=== PATIENT | female | born 1950 | race Caucasian/White ===

== ENCOUNTER 2020-11-06 12:30 | Inpatient (IN) ==
--- NOTE | 2020-10-30 10:18 | Anesthesiology Consultation ---
Date of Service October 30, 2020 Assessment & Plan (1) Encounter for pre-operative examination: - COVID screening: Per assessment on 10/30: Travel screen negative, no known COVID-19 positive contacts or current COVID-19 related symptoms. Patient vaccinated. Surgeon arranging preop COVID testing. Awaiting results. - PCP office visit (09/25/20): "Pt had preop labs, chronic hyponatremia (124 on those labs).. Has upcoming appt with neurology next month.. clinically stable for surgery based on today's exam (Assuming cardiology and neurology clear the patient as well).. Has chronic hyponatremia - likely a result of the patient's chronic use of carbamazepine for epilepsy. Attached are the chronic sodium labs. Correction would likely lead to increased issues- neurology is working to wean off carbamazepine. Monitoring in daniel-operative period is recommended." Pt subsequently received cardiology clearance 09/30 and neurology clearance 10/22 (noted below). - Cardiology note (09/30/20): "low risk" for surgery - Neurology office visit (10/09/20): "Hyponatremia from Tegretol and losartan..Will taper and discontinue Tegretol, electrolytes after discontinuing Tegretol.. Follow-up after electrolytes, if normal will be able to get preop approval. Previous EEG in June is normal, no seizures." - Neurology office visit (10/22/20): "Comes for follow up today regarding testing results of Electrolytes regarding low sodium level.. She has had no Seizure activity since her previous visit. The patient was scheduled for back surgery and came for neurological clearance. Her sodium level remained low at the time. She had a low sodium level for many years.. She continued on all the same medication without complication or side effect. She had no new complaints and comes today to report on 10/16/2020 her sodium level remained low. Her level was 131.. The patient was advised to discontinue Tegretol. She reports she had no Seizure activity since her previous visit. The patient will contact Dr. Ji to schedule her surgery. She had no other concerns or complaints at this time.. Hyponatremia, Carbemazepine induced , corrected with discontinuing Carbemazepine and increasing salt in her diet.. she is now cleared for her planned surgery." Chart Review Chart Review: Acceptable Risk for Surgery and Patient NOT seen in Pre Admission Testing History Surgery Operation Date: 11/06/20 11:05 Proposed Procedures p L4-S1 Decompression/Fusion, Spinal Cord Monitoring - Andrei Ji DO Height/Weight Height: 5 ft 1 in Weight: 60.781 kg Allergies Allergy/AdvReac Type Severity Reaction Status Date / Time propoxyphene [From Darvon] AdvReac Mild Upset Verified 10/30/20 10:15 stomach Medications Home Medications Medication Instructions Recorded Confirmed Last Taken aspirin 81 mg tablet 81 mg PO QAM 09/17/20 10/30/20 Unknown atorvastatin 40 mg tablet 40 mg PO PM 09/17/20 10/30/20 Unknown cholecalciferol (vitamin D3) 25 25 mcg PO QAM 09/17/20 10/30/20 Unknown mcg (1,000 unit) tablet (Vitamin D3) losartan 50 mg tablet 50 mg PO QAM 09/17/20 10/30/20 Unknown metoprolol succinate 100 mg 100 mg PO QPM 09/17/20 10/30/20 Unknown tablet,extended release 24 hr multivitamin 1 tab PO QAM 09/17/20 10/30/20 Unknown omeprazole 20 mg tablet,delayed 20 mg PO QAM 09/17/20 10/30/20 Unknown release Past Medical History Medical History Arthritis CAD (coronary artery disease) stents x3 (2018), Follows with Dr. Corrales GERD (gastroesophageal reflux disease) controlled History of anemia blood transfusion in infancy (unknown etiology) Hyperlipidemia Hypertension Seizure Grand mal > most recent seizure 25+ years ago (recently weaned off Tegretol d/t hyponatremia) Spinal stenosis Past Family History Family History Mother Family hx of colon cancer Other No family history of adverse response to anesthesia Past Surgical History Surgical History History of bilateral tubal ligation History of bunionectomy Right History of colonoscopy History of heart artery stent x3 (2018)- [facility] [place] teeth removed Social History Smoking Status: Never smoker Hx Alcohol Use: No Alcohol type: wine alcohol intake frequency: holidays/special occasions only Hx Substance Use: No substance use type: does not use Lab Results Anesthesia Preop Results Results Anesthesia Widget: WBC 6.05 K/uL (4.8-10.8) 09/23/20 Hgb 12.6 g/dL (12.0-16.0) 09/23/20 Hct 36.6 % (37-47) L 09/23/20 Plt 345 K/uL (130-400) 09/23/20 Na 131 mmol/L (136-145) L 10/03/20 K 4.2 mmol/L (3.5-5.1) 09/23/20 Cl 90 mmol/L (98-107) L 09/23/20 CO2 30 mmol/L (21-32) 09/23/20 BUN 12 mg/dl (7-18) 09/23/20 Creat 0.61 mg/dl (0.6-1.2) 09/23/20 Glucose Level 128 mg/dl (70-99) H 09/23/20 PT 10.5 Seconds (9.0-12.0) 09/23/20 PTT 27.6 Seconds (21.0-31.0) 09/23/20 INR 1.0 (0.9-1.1) 09/23/20 Urine Color Yellow 09/23/20 Urine Appearance Clear (Clear) 09/23/20 Urine pH 7.5 (4.5-7.5) 09/23/20 Urine Specific [place] 1.013 (1.000-1.030) 09/23/20 Urine Protein Negative (Negative) 09/23/20 Urine Glucose (UA) Negative (Negative) 09/23/20 Urine Ketones Negative (Negative) 09/23/20 Urine Blood Negative (Negative) 09/23/20 Urine Nitrite Negative (Negative) 09/23/20 Urine Bilirubin Negative (Negative) 09/23/20 Urine Urobilinogen Negative (Negative) 09/23/20 Urine Leukocyte Esterase Negative (Negative) 09/23/20 Blood Type B Positive 09/23/20 Antibody Screen NEGATIVE 09/23/20 Lab Comments: Per neurology note, patient had repeat sodium level 10/16 which was again improved/back to baseline of 131 since discontinuing Tegretol. Attempts to obtain official report unsuccessful. Did received 10/15 [facility] labs with the follow levels: SODIUM 133 POTASSIUM 4.7 CHLORIDE 99 CO2 29 Testing Electrocardiogram Date: 07/12/21 NSR at 66bpm. NS STA. Chest X-Ray Date: 09/23/20 FINDINGS: Cardiomediastinal and hilar silhouettes are within normal limits. Coronary arterial stents. Calcific plaque of the thoracic aorta. No pneumothorax, pleural effusion, airspace consolidation or overt pulmonary edema. Sigmoidal thoracolumbar scoliosis. IMPRESSION: No acute process. Echocardiogram Date: 09/19/20 EF 55%. Moderate LAD. Mild RAD. Mild to moderate MR. Mild AR. Mild TR. Mildly increased PASP. Physiologic AL. Cardiac Catheterization Date: 10/18/17 Successful PCI pCX with KUN
--- NOTE | 2020-11-05 12:44 | History & Physical Report ---
Date of Service November 05, 2020 Assessment & Plan (1) Neurogenic claudication due to lumbar spinal stenosis: Plan: Patient has evidence of severe lumbar spinal stenosis both with central and lateral recess as well as foraminal disease. She is spondylolisthesis L4-L5. This combined with her progressive strength deficits and inability to undergo activities of daily living I am recommending urgent lumbar decompression and fusion L4 S1 to avoid permanent neurologic deficits. History of Present Illness Chief Complaint: Back and bilateral leg pain with weakness Primary Care Provider: Miranda Ritter PA-C This is a 70-year-old female that presents with progressive back and bilateral leg pain. She now notes significant weakness to lower extremities with any standing and walking. She is undergone extensive course of nonoperative care including epidural injections providing limited to no relief. Allergies Allergy/AdvReac Type Severity Reaction Status Date / Time propoxyphene [From Darvon] AdvReac Mild Upset Verified 10/30/20 10:15 stomach Home Medications Medication Instructions Recorded Confirmed Type aspirin 81 mg tablet 81 mg PO QAM 09/17/20 10/30/20 History atorvastatin 40 mg tablet 40 mg PO PM 09/17/20 10/30/20 History cholecalciferol (vitamin D3) 25 25 mcg PO QAM 09/17/20 10/30/20 History mcg (1,000 unit) tablet (Vitamin D3) losartan 50 mg tablet 50 mg PO QAM 09/17/20 10/30/20 History metoprolol succinate 100 mg 100 mg PO QPM 09/17/20 10/30/20 History tablet,extended release 24 hr multivitamin 1 tab PO QAM 09/17/20 10/30/20 History omeprazole 20 mg tablet,delayed 20 mg PO QAM 09/17/20 10/30/20 History release Past Med/Surg History Medical History Arthritis CAD (coronary artery disease) stents x3 (2018), Follows with Dr. Corrales GERD (gastroesophageal reflux disease) controlled History of anemia blood transfusion in infancy (unknown etiology) Hyperlipidemia Hypertension Seizure Grand mal > most recent seizure 25+ years ago (recently weaned off Tegretol d/t hyponatremia) Spinal stenosis Surgical History History of bilateral tubal ligation History of bunionectomy Right History of colonoscopy History of heart artery stent x3 (2018)- [facility] [place] teeth removed Family History Mother Family hx of colon cancer Other No family history of adverse response to anesthesia Social History Smoking Status: Never smoker Second Hand Exposure: Yes ( A CHILD); Hx Alcohol Use: No Hx Substance Use: No Preferred Language: Malay Appeals Representative Required: No Beliefs That Will Affect Care: None Current Living Situation: Spouse Feels Safe at Home: Yes Assistive Devices: Glasses Physical Exam Physical Exam: Patient is alert and oriented Heart regular in rhythm Lungs clear to auscultation On physical exam patient does demonstrate marked inability to stand and ambulate any distance. She is unable to stand on her toes and heels and is consistent strength deficits at L4 minus over 5 plantar flexion dorsiflexion bilateral lower extremities.
[~2020-11-06 12:30] MED LIST: ACETAMINOPHEN 500 MG TAB PO SCH; CeleBREX 200 MG CAP PO SCH; GABAPENTIN 300 MG CAP PO SCH; LR 15ML/HR IV SCH; ceFAZolin 1000MG 1,000 MG/7.5 ML SYR IV SCH
[2020-11-06] MEDS ORDERED: ONDANSETRON INJ 2 MG/ML 2 ML VIAL IV PRN ×2 (13:20→17:45)
[2020-11-06] MEDS ORDERED: fentaNYL citrate 100 MCG/2 ML VIAL IV PRN (13:20)
[2020-11-06] MEDS ORDERED: ATROPINE SULFATE 0.1 MG/ML 10ML SYR IV PRN (13:20)
[2020-11-06] MEDS ORDERED: ePHEDrine sulfate 50 MG/ML AMP IV PRN (13:20)
[2020-11-06] MEDS ORDERED: MIDAZOLAM HCL 1 MG/ML 2ML VIAL ONE (13:25)
[2020-11-06] MEDS ORDERED: fentaNYL citrate 100 MCG/2 ML VIAL ONE ×2 (13:25→15:58)
[2020-11-06] MEDS ORDERED: METOCLOPRAMIDE HCL INJ 5 MG/ML 2 ML VIAL ONE (13:25)
--- NOTE | 2020-11-06 13:51 | History & Physical Bridge Note ---
Date of Service November 06, 2020 History & Physical Bridge Note I have examined the patient, reviewed the History & Physical and in the interval since the performance of the History & Physical I have noted the following changes of clinical significance: no changes noted
[2020-11-06] MEDS ORDERED: EPINEPHrine INJ 1 MG/ML AMP ONE (14:08)
[2020-11-06] MEDS ORDERED: BUPIVACAINE 0.5 % 5 MG/1 ML MPF 30ML VIAL ONE (14:08)
[2020-11-06] MEDS ORDERED: LIDOCAINE 2% 2 ML VIAL/AMP(20MG/ML) INFIL ONE (15:55)
[2020-11-06] MEDS ORDERED: DEXAMETHASONE SOD INJ 4 MG/ML VIAL ONE (15:55)
[2020-11-06] MEDS ORDERED: GLYCOPYRROLATE 0.2 MG/ML VIAL ONE (15:55)
[2020-11-06] MEDS ORDERED: ONDANSETRON INJ 2 MG/ML 2 ML VIAL ONE (15:55)
[2020-11-06] MEDS ORDERED: ROCURONIUM BROMIDE 10 MG/ML 5 ML VIAL IV ONE (15:55)
[2020-11-06] MEDS ORDERED: NEOSTIGMINE METHYLSULFATE 1 MG/ML 10ML VIAL ONE (15:55)
[2020-11-06] MEDS ORDERED: PROPOFOL IV EMULSION 10 MG/ML 20 ML VIAL IV ONE (15:55)
--- NOTE | 2020-11-06 16:09 | Operative Report ---
Post Operative Report Pre & Post Diagnosis Operation Date: 11/06/20 14:15 Pre-Op Diagnosis: Spinal Stenosis, Lumbar Region with Neurogenic Claudication Post-Op Diagnosis: Spinal Stenosis, Lumbar Region with Neurogenic Claudication I identified the patient and participated in the time-out.: Yes Procedure Operation Date: 11/06/20 14:15 Actual Procedures #1 Lumbar decompression with bilateral medial facetectomies and foraminotomies L3-4, L4-5 and L5-S1. #2 posterior spinal fusion L4-5 L5-S1. #3 placed posterior instrumentation L4-5 L5-S1. #4 interbody fusion L4-5 L5-S1. #5 placement peek cage 10 x 22 mm at L4-5 and 10 x 22 mm at L5-S1. #6 placement locally harvested morselized autograft in the posterior lateral gutters. #7 placement of these collagen sponge bone mass graft in the posterior lateral gutters and I factor interbody space. Surgeon Andrei Ji, Onion Farmer Marilou Christie Estimated Blood Loss 125 Findings Consistent with Post-Op Diagnosis Specimens None Indications This is a 70-year-old female who presents with above-mentioned diagnosis after failing stents course of nonoperative care she is here for the above-mentioned procedure. Description of Procedure Patient was met with identified informed consent obtained. Patient was then taken to the operative suite underwent ablation placed in a prone position Bautista with Dr. Jing almonte. All bony prominences well-padded eyes inspected to ensure no external pressure placed upon the. This point lumbar spine is prepped and draped in a sterile fashion. Sharp dissection with the assistance of Bovie cautery performed down to and exposing the lamina transverse processes of L4-L5 and the sacral ala bilaterally. From caudal cephalad fashion complete laminectomy of L5 L4 and partial laminectomy L3 was performed including bilateral medial facetectomies and foraminotomies addressing severe spinal stenosis. Pedicle screws then placed in L4-L5 and S1 levels bilaterally with assistance of fluoroscopy the purposes uvaldo placed. By way the transforaminal approach on the right a complete discectomy of of L5 and S1 was performed endplates curetted to subcortically bone and a 10 x 22 mm peek cage filled with I factor tapped in position. Then proceeded L4-L5 and again by way of a transforaminal portion right complete discectomy was performed endplates curetted to subcortically bone and a 10 x 22 mm peek cage filled with I factor tapped position. The rods were then locked in final position bilaterally. Transverse processes of L4-L5 and sacral ala burred to subcortical bleeding bone. Infuse collagen sponge master graft and local autograft was placed in the posterior gutters. 15 round NIKOLE drain inserted. The incision was then closed with 1 Vicryl to fascia 2-0 Vicryl subcutaneously and 4 Monocryl for final skin closure. Steri-Strip Steri-Strips placed. Patient will continue PACU stable condition. Please note spinal cord monitoring was last that the procedure no changes noted. Lastly Marilou Christie was present at the entire procedure and all the patient positioning complex portions of the surgery and final skin closure. I attest to the content of the Intraoperative Record and any orders documented therein. Any exceptions are noted below.
[2020-11-06] MEDS ORDERED: FLOSEAL HEMOSTATIC MATRIX 10ML TOP ONE (16:10)
--- NOTE | 2020-11-06 16:16 | Fluoroscopy Report ---
FL lumbar spine 2-3V CLINICAL HISTORY: L4-S1 PSF, DECOMPRESSION COMPARISON STUDY: Lumbar spine radiographs April 29, 2016. FLUOROSCOPY TIME: 22 seconds. FLUOROSCOPIC IMAGES: 2 FINDINGS: Fluoroscopy was provided during L4-L5 and L5-S1 discectomies with interbody spacer placemen t. Posterior decompression is noted with bilateral pedicle screws at the L4, L5 and S1 levels. There are interconnecting rods. Hardware is intact. IMPRESSION: Fluoroscopy provided during L4-S1 posterior decompression, discectomy and bilateral pedi maite screw fusion. ACT 112: Negative or not required by law. Electronically signed by: Chet Gonzalez M.D. 11/06/2020 4:15 PM
[2020-11-06] MEDS ORDERED: ePHEDrine sulfate 50 MG/ML SYR ONE (16:36)
[2020-11-06] MEDS ORDERED: PHENYLEPHRINE 100MCG/ML 5ML SYR ONE (16:36)
--- NOTE | 2020-11-06 17:16 | Anesthesiology Progress Note ---
Date of Service November 06, 2020 Anesthesia Post Procedure Vital Signs Vital Signs: Temp Pulse Pulse Resp BP Pulse Ox 11/06/20 17:05 36.4 C L 63 16 145/75 H 95 11/06/20 16:55 68 14 159/80 H 96 11/06/20 16:45 73 16 163/82 H 100 11/06/20 16:35 79 14 161/87 H 100 11/06/20 16:27 36.3 C L 69 14 167/81 H 99 11/06/20 12:56 37 C 68 16 170/96 H 97 Pain Intensity Left Medial Buttock: Pain Intensity: 5 Transfer of Care Handoff Completed per policy Notes Mental Status: alert / awake / arousable and participated in evaluation Patient Amnestic to Procedure: Yes Nausea / Vomiting: adequately controlled Pain: adequately controlled Airway Patency, RR, SpO2: stable & adequate BP & HR: stable & adequate Hydration State: stable & adequate Anesthetic Complications: no major complications apparent and Pt Satisfied with anesthetic care
[2020-11-06] MEDS ORDERED: ALUMINUM/MAGNESIUM SUSP 30 ML UDC PO PRN (17:45)
[2020-11-06] MEDS ORDERED: DO NOT ADMINISTER PNEUMOCOCCAL VACCINE PRN (17:45)
[2020-11-06] MEDS ORDERED: LORazepam 0.5 MG/1 ML VIAL IV PRN (17:45)
[2020-11-06] MEDS ORDERED: ACETAMINOPHEN 1,000 MG/100 ML VIAL IV PRN (17:45)
[2020-11-06] MEDS ORDERED: NALOXONE HCL 0.4 MG/1 ML VIAL/CARP IV PRN (17:45)
[2020-11-06] MEDS ORDERED: SOD PHOSPHATE/SOD BIPHOSPHATE ENEMA 132 ML BTL PR PRN (17:45)
[2020-11-06] MEDS ORDERED: HYDROmorphone INJ 0.5 MG/0.5 ML SYR IV PRN (17:45)
[2020-11-06] MEDS ORDERED: LORazepam 0.5 MG TAB PO PRN (17:45)
[2020-11-06] MEDS ORDERED: MAGNESIUM HYDROXIDE SUSP 30 ML UDC PO PRN (17:45)
[2020-11-06] MEDS ORDERED: METOCLOPRAMIDE HCL INJ 5 MG/ML 2 ML VIAL IV PRN (17:45)
[2020-11-06] MEDS ORDERED: PROMETHAZINE HCL 12.5 MG in SODIUM CHLORIDE 0.9% 50 ML IV PRN (17:45)
[2020-11-06] MEDS ORDERED: bisacodyL 10 MG SUPP PR PRN (17:45)
[2020-11-06] MEDS ORDERED: DO NOT ADMINISTER FLU VACCINE PRN (17:45)
[2020-11-06] MEDS ORDERED: HYDROmorphone INJ 1 MG/ML SYRINGE IV PRN (17:45)
[2020-11-06] MEDS ORDERED: hydrOXYzine HCl 25 MG TAB PO PRN (17:45)
[2020-11-06] MEDS ORDERED: ONDANSETRON 4 MG OD TAB PO PRN (17:45)
[2020-11-06] MEDS ORDERED: FAMOTIDINE 20 MG TAB PO PRN (17:45)
[2020-11-06] MEDS ORDERED: diphenhydrAMINE Capsule 25 MG CAP PO PRN (17:45)
[2020-11-06] MEDS: LACTATED RINGER'S 1,000 ML IV SCH (18:16)
--- NOTE | 2020-11-06 19:04 | Consultation ---
Date of Consultation November 06, 2020 Assessment & Plan (1) Status post lumbar surgery: Post op day# 0 S/P L4-S1 decompression and fusion by Dr Ji EBL#125ml -pain management per ortho -wound management per ortho -PT/OT as appropriate -DVT prophylaxis per ortho -incentive spirometry -monitor H&H for acute blood loss anemia; pre-op Hgb: 12 (2) CAD (coronary artery disease): S/P Stent x 3 in 2018 No CP or SOB -Continue aspirin, atorvastatin, metoprolol (3) Hypertension: -Continue losartan, metoprolol (4) Hyperlipidemia: -Continue atorvastatin (5) Seizure: H/O Seizure disorder. Last seizure >25 years ago Has been tapered off Tegretol secondary to hyponatremia (6) GERD (gastroesophageal reflux disease): -Continue PPI DVT Prophylaxis -SCDs per ortho Disposition per primary team Follows with Miranda Ritter PA-C in [place] for routine care Pt was seen and care coordinated with Dr Oshea. See addendum Thank you for this consultation. We will follow the patient with you during their hospital stay. You can reach a [facility] via ClaimReturn Patient was seen and examined. Agree with alexandra Armas PA-C exam, assessment, and plan. Day# 0 S/P L4-S1 decompression and fusion performed by Dr. Ji. No postop complication. Continue pain management. Hemoglobin stable continue incentive spirometry. Continue monitor H&H. PT/OT eval. fall precaution. MD Dayo History of Present Illness Requesting Physician: Dr. Ji Reason for Consultation: Postop medical management Attending Physician: Andrei Ji DO History of Present Illness Patient is 70-year-old female with PMH CAD s/p stents x3 in 2018, HTN, HLD, GERD, seizure disorder seen in medical consultation s/p L4-S1 decompression and fusion today by Dr. Ji. Postop patient reports some back pain and leg numbness. She also reports nausea. Denies vomiting. Denies chest pain, shortness of breath. Reports last BM 1 day ago. Has Parks catheter in place. Denies fever/chills, diaphoresis, AGARWAL, dizziness, syncope, vision changes, neck pain, palpitations, cough, sore throat, choking, otalgia, rhinorrhea, abdominal pain, extremity edema, rashes, urinary symptoms. Allergies Allergy/AdvReac Type Severity Reaction Status Date / Time propoxyphene [From Darvon] AdvReac Mild Upset Verified 11/06/20 12:50 stomach Home Medications Medication Instructions Recorded Confirmed Type aspirin 81 mg tablet 81 mg PO QAM 09/17/20 11/06/20 History atorvastatin 40 mg tablet 40 mg PO PM 09/17/20 11/06/20 History cholecalciferol (vitamin D3) 25 25 mcg PO QAM 09/17/20 11/06/20 History mcg (1,000 unit) tablet (Vitamin D3) losartan 50 mg tablet 50 mg PO QAM 09/17/20 11/06/20 History metoprolol succinate 100 mg 100 mg PO QPM 09/17/20 11/06/20 History tablet,extended release 24 hr multivitamin 1 tab PO QAM 09/17/20 11/06/20 History omeprazole 20 mg tablet,delayed 20 mg PO QAM 09/17/20 11/06/20 History release oxycodone 5 mg tablet 5 mg PO Q6H PRN #30 tab 11/07/20 Rx tramadol 50 mg tablet 50 mg PO Q6H PRN #30 tab 11/07/20 Rx Patient History Medical History Arthritis CAD (coronary artery disease) stents x3 (2018), Follows with Dr. Corrales GERD (gastroesophageal reflux disease) controlled History of anemia blood transfusion in infancy (unknown etiology) Hyperlipidemia Hypertension Seizure Grand mal > most recent seizure 25+ years ago (recently weaned off Tegretol d/t hyponatremia) Spinal stenosis Surgical History History of bilateral tubal ligation History of bunionectomy Right History of colonoscopy History of heart artery stent x3 (2018)- [facility] [place] teeth removed Family History Mother Family hx of colon cancer Other No family history of adverse response to anesthesia Social History Smoking Status: Never smoker Second Hand Exposure: Yes ( A CHILD); Hx Alcohol Use: No Hx Substance Use: No Preferred Language: Khmer Communication Ability: Effective Generator Operator Required: No Beliefs That Will Affect Care: None Current Living Situation: Spouse Feels Safe at Home: Yes Safety Concerns: Feels Safe At This Time Assistive Devices: Walker Review of Systems Review of Systems: All systems reviewed & are unremarkable except as noted in HPI & below Physical Exam Physical Exam: General: no distress, WDWN Head: normocephalic, atraumatic Eyes: conjunctiva non-injected, anicteric ENT: normal inspection external ears, nose, mucous membranes moist Neck: supple, trachea midline Lungs: clear, no respiratory distress, no wheezing/rhonchi/rales CV: RRR, no murmur, no pretibial edema Abd: normal BS, soft, non-tender Back: surgical dressing is dry and intact, NIKOLE drain with slight amount serosanguineous drainage Ext: no cyanosis, no calf tenderness; pedal pushes and pulls intact bilaterally, sensation to light touch intact, distal pulses intact Neuro: A&O x 3, no focal deficits noted, normal affect Skin: warm, dry Results & Data ([facility]) Vital Signs (Past 12 Hours) Vital Signs Temp Pulse Pulse Resp BP Pulse Ox 11/06/20 18:34 36.3 C L 66 16 110/71 95 11/06/20 18:01 36.3 C L 68 16 143/85 H 97 11/06/20 17:30 36.5 C 73 18 141/80 H 97 11/06/20 17:15 66 16 139/73 95 11/06/20 17:05 36.4 C L 63 16 145/75 H 95 11/06/20 16:55 68 14 159/80 H 96 11/06/20 16:45 73 16 163/82 H 100 11/06/20 16:35 79 14 161/87 H 100 11/06/20 16:27 36.3 C L 69 14 167/81 H 99 11/06/20 12:56 37 C 68 16 170/96 H 97
[2020-11-06] MEDS: oxyCODONE HCL IR 5 MG TAB (IMMEDIATE RELEASE) PO PRN (20:00)
[2020-11-06] MEDS: METOPROLOL SUCC 50MG EXT REL TAB PO SCH (20:39)
[2020-11-06] MEDS: ATORVASTATIN 40 MG TAB PO SCH (20:40)
[2020-11-06] MEDS: DOCUSATE SODIUM/SENNA 50/8.6MG TAB PO SCH (20:40)
[2020-11-06] MEDS: ceFAZolin 1000MG 1,000 MG/7.5 ML SYR IV SCH (21:40)
[2020-11-07] MEDS: LACTATED RINGER'S 1,000 ML IV SCH (04:16)
[2020-11-07] MEDS: POLYETHYLENE (MIRALAX) 17 GM PACK PO SCH ×4 (05:53→23:27)
[2020-11-07] MEDS: ceFAZolin 1000MG 1,000 MG/7.5 ML SYR IV SCH (05:53)
[2020-11-07 06:37] LABS: Basophils # (auto) 0.01 K/uL (0-0.2); Basophils % (auto) 0.1 %; Hematocrit (blood only) 34.2 % (37-47); Hemoglobin 11.5 g/dL (12.0-16.0); Immature Granulocytes # (auto) 0.04 K/uL (0.00-0.02); Immature Granulocytes % (auto) 0.2 %; Lymphocytes # (auto) 0.91 K/uL (1.2-3.4); Lymphocytes % (auto) 5.4 %; Mean Corpuscular Hemoglobin 32.7 pg (25-34); Mean Corpuscular Hgb Conc 33.6 g/dL (32-36); Mean Corpuscular Volume 97.2 fL (80-100); Mean Platelet Volume 9.8 fL (7.4-10.4); Monocytes # (auto) 1.15 K/uL (0.11-0.59); Monocytes % (auto) 6.8 %; Neutrophils # (auto) 14.87 K/uL (1.4-6.5); Neutrophils % (auto) 87.5 %; Platelet Count 266 K/uL (130-400); RDW Coefficient of Variation 12.9 % (11.5-14.5); RDW Standard Deviation 45.5 fL (36.4-46.3); Red Blood Count 3.52 M/uL (4.2-5.4); White Blood Count 16.98 K/uL (4.8-10.8)
[2020-11-07 07:03] LABS: BUN Creatinine Ratio 14.8 (10-20); Calcium 8.8 mg/dl (8.5-10.1); Creatinine Clr Calc Pharmacy 69.7 ml/min; Est GFR (African American) 105.7 ml/min; Est GFR (Non-African American) 91.2 ml/min; Potassium 4.3 mmol/L (3.5-5.1)
[2020-11-07] MEDS: ASPIRIN 81 MG ECTAB PO SCH (08:30)
[2020-11-07] MEDS: MULTIVITAMIN TAB PO SCH (08:30)
[2020-11-07] MEDS: PANTOprazole 40 MG TAB PO SCH (08:30)
[2020-11-07] MEDS: CHOLECALCIFEROL 1,000 UNITS 25 MCG TAB PO SCH (08:30)
[2020-11-07] MEDS: LOSARTAN POTASSIUM 50 MG TAB PO SCH (08:31)
[2020-11-07] MEDS: traMADol HCL 50 MG TABLET PO PRN ×2 (08:37→20:38)
--- NOTE | 2020-11-07 09:20 | Hospitalist Progress Note ---
Date of Service November 07, 2020 Assessment & Plan (1) Status post lumbar surgery: Plan: Post op day# 1 S/P L4-S1 decompression and fusion by Dr Ji H&H stable. EBL#125ml. Hgb 11.5 today (pre-op hgb 12.6) Per ortho for pain control, wound care, anticoagulation and activities Continue incentive spirometry, PT/OT when appropriate (2) Hypotension: Plan: Hypotensive during exam, BP 89/63 with some lightheadedness In post op setting Losartan held this AM - continue to hold losartan and metoprolol NSS 500 ml bolus and BP recheck Discussed with RN (3) Hypertension: Plan: Holding losartan and Toprol for now (4) CAD (coronary artery disease): Plan: S/P Stent x 3 in 2018 No CP or SOB Continue aspirin, atorvastatin, metoprolol (5) Hyperlipidemia: Plan: Continue atorvastatin (6) Seizure: Plan: H/O Seizure disorder. Last seizure >25 years ago Has been tapered off Tegretol secondary to hyponatremia (7) GERD (gastroesophageal reflux disease): Plan: Continue PPI DVT Prophylaxis: SCDs per ortho Disposition per primary team Follows with Miranda Ritter PA-C in [place] for routine care Patient seen in collaboration with Dr. Chamberlain. Please see addendum. Thank you for this consultation. We will follow the patient with you during their hospital stay. You can reach a [facility] via [employer] Admission and Anticipated Discharge Date Admission Date: November 06, 2020 Supervising Physician Co-Signing Physician Notes Attending addendum The patient was seen and examined in medical floor She is a status post L4-S1 decompression/fusion Has been complaining of minimal pain at the back without radiation Noted to have hypotension which has been improving with intravenous fluid and oral intake On examination Sitting on a chair without any acute distress Hemodynamically stable now Chestclear to auscultate bilaterally HeartS1-S2, regular Abdomenbenign Extremitiestrace edema bilaterally CNSalert, awake and oriented x3 Her labs and imaging studies reviewed Noted to have hypotension following surgery which improved with intravenous flui d and increase oral intake of fluid Agree with assessment and plan as outlined above by YASH Contreras DR Subjective Patient seen and examined in [facility] in bedside chair. Feeling lightheaded but otherwise well. No fever, chills, headache, visual changes, chest pain, SOB, nausea, vomiting, abdominal pain, dysuria. Passing flatus, no bowel movement yet. Up ambulating with PT this morning without issue. Review of Systems Review of Systems: At least ten systems reviewed and negative except as noted in the HPI. Physical Exam Physical Exam: General Appearance: WD/WN, vitals as above, NAD, sitting up in bedside chair, pleasant, conversing easily Head: normocephalic, atraumatic Eyes: normal inspection, PERRL, conjunctivae normal, anicteric sclerae ENT: external ear and nose normal, oropharynx normal Neck: normal visual inspection, trachea midline, no thyromegaly Respiratory: normal respiratory effort, lungs clear to auscultation, no wheeze, rales, rhonchi. No accessory muscle use Cardiovascular: regular rate, rhythm, no murmur, normal peripheral pulses, no BLE edema. Vessels: no JVD Abdomen/GI: normal bowel sounds, soft, nontender, no hepatosplenomegaly : + Parks catheter Extremities/Musculoskeletal: Spinal surgical dressing c/d/i. No cyanosis or clubbing, extremities motor strength 5/5 Neurologic: PERRL, CN's II-XI intact bilaterally and moves all extremities Psychiatric: A+Ox3, euthymic affect Skin: no rashes, normal color, warm/dry Results & Data Results & Data ([facility]) Vital Signs (Past 12 Hours) Vital Signs Temp Pulse Resp BP Pulse Ox 11/07/20 07:09 36.6 C 60 16 100/59 L 94 11/07/20 04:24 37 C 65 16 113/71 97 11/06/20 22:26 36.3 C L 74 16 116/76 99 Laboratory Results Short CBC 11/07/20 Range/Units 06:03 WBC 16.98 H (4.8-10.8) K/uL Hgb 11.5 L (12.0-16.0) g/dL Hct 34.2 L (37-47) % Plt Count 266 (130-400) K/uL BMP 11/07/20 06:03 Sodium 134 L Potassium 4.3 Chloride 102 Carbon Dioxide 24 BUN 10 Creatinine 0.65 Glucose 111 H Calcium 8.8 Diagnostic Findings Lumbar Spine X-Ray 11/06/20 12:55 FL lumbar spine 2-3V CLINICAL HISTORY: L4-S1 PSF, DECOMPRESSION COMPARISON STUDY: Lumbar spine radiographs April 29, 2016. FLUOROSCOPY TIME: 22 seconds. FLUOROSCOPIC IMAGES: 2 FINDINGS: Fluoroscopy was provided during L4-L5 and L5-S1 discectomies with interbody spacer placement. Posterior decompression is noted with bilateral pedicle screws at the L4, L5 and S1 levels. There are interconnecting rods. Hardware is intact. IMPRESSION: Fluoroscopy provided during L4-S1 posterior decompression, discectomy and bilateral pedicle screw fusion. ACT 112: Negative or not required by law. Electronically signed by: Chet Gonzalez M.D. 11/06/2020 4:15 PM
--- NOTE | 2020-11-07 10:13 | Orthopedic Progress Note ---
Date of Service November 07, 2020 Assessment & Plan (1) Neurogenic claudication due to lumbar spinal stenosis: Plan: This time we will continue physical therapy monitor NIKOLE operatively discharge home in next few days. Admission and Anticipated Discharge Date Admission Date: November 06, 2020 Subjective Back pain controlled leg symptoms improved Physical Exam Physical Exam: Patient is ambulating halls. She is good strength testing. She is comfortable. Results & Data ([facility]) Vital Signs (Past 12 Hours) Vital Signs Temp Pulse Resp BP Pulse Ox 11/07/20 07:09 36.6 C 60 16 100/59 L 94 11/07/20 04:24 37 C 65 16 113/71 97 11/06/20 22:26 36.3 C L 74 16 116/76 99
[2020-11-07] MEDS ORDERED: SODIUM CHLORIDE 0.9% 500 ML IV SCH (10:45)
[2020-11-07] MEDS ORDERED: SODIUM CHLORIDE 0.9% 1000ML 500 ML IV ONE (10:45)
[2020-11-07] MEDS ORDERED: SODIUM CHLORIDE 0.9% 1000ML 1,000 ML IV SCH (11:45)
[2020-11-07] MEDS: DOCUSATE SODIUM/SENNA 50/8.6MG TAB PO SCH (20:37)
[2020-11-07] MEDS: ATORVASTATIN 40 MG TAB PO SCH (20:37)
[2020-11-07] MEDS: METOPROLOL SUCC 50MG EXT REL TAB PO SCH (20:44)
[2020-11-07] MEDS: ACETAMINOPHEN 500 MG TAB PO PRN (23:55)
[2020-11-07] MEDS: oxyCODONE HCL IR 5 MG TAB (IMMEDIATE RELEASE) PO PRN (23:55)
[2020-11-08] MEDS: POLYETHYLENE (MIRALAX) 17 GM PACK PO SCH (06:27)
[2020-11-08 06:30] LABS: Hematocrit (blood only) 28.2 % (37-47); Hemoglobin 9.5 g/dL (12.0-16.0); Mean Corpuscular Hgb Conc 33.7 g/dL (32-36); Mean Corpuscular Volume 97.9 fL (80-100); Mean Platelet Volume 9.5 fL (7.4-10.4); Platelet Count 249 K/uL (130-400); RDW Coefficient of Variation 13.1 % (11.5-14.5); RDW Standard Deviation 46.9 fL (36.4-46.3); Red Blood Count 2.88 M/uL (4.2-5.4); White Blood Count 11.69 K/uL (4.8-10.8)
[2020-11-08 06:58] LABS: BUN Creatinine Ratio 18.6 (10-20); Calcium 8.4 mg/dl (8.5-10.1); Creatinine Clr Calc Pharmacy 80.9 ml/min; Est GFR (Non-African American) 95.8 ml/min; Potassium 4.2 mmol/L (3.5-5.1)
[2020-11-08] MEDS: PANTOprazole 40 MG TAB PO SCH (08:17)
[2020-11-08] MEDS: MULTIVITAMIN TAB PO SCH (08:17)
[2020-11-08] MEDS: ASPIRIN 81 MG ECTAB PO SCH (08:17)
[2020-11-08] MEDS: CHOLECALCIFEROL 1,000 UNITS 25 MCG TAB PO SCH (08:18)
[2020-11-08] MEDS: dexAMETHasone 8 MG in SYRINGE 0 ML IV SCH (08:18)
[2020-11-08] MEDS: oxyCODONE HCL IR 5 MG TAB (IMMEDIATE RELEASE) PO PRN ×3 (08:23→20:47)
--- NOTE | 2020-11-08 08:58 | Orthopedic Progress Note ---
Date of Service November 08, 2020 Assessment & Plan Admission and Anticipated Discharge Date Admission Date: November 06, 2020 Subjective Patient's back pain is controlled leg symptoms markedly improved Physical Exam Physical Exam: Patient is in the chair at bedside. Is good strength testing. Appears comfortable. Results & Data ([facility]) Vital Signs (Past 12 Hours) Vital Signs Temp Pulse Resp BP Pulse Ox 11/08/20 07:29 36.9 C 72 16 124/83 98 11/07/20 21:58 37.5 C 83 16 130/82 100
--- NOTE | 2020-11-08 09:28 | Hospitalist Progress Note ---
Date of Service November 08, 2020 Assessment & Plan (1) Status post lumbar surgery: Plan: Post op day# 2 S/P L4-S1 decompression and fusion by Dr Ji H&H filemon. EBL#125ml. Hgb 9.5 today (hgb yesterday 11.5) Per ortho for pain control, wound care, anticoagulation and activities Continue incentive spirometry, PT/OT when appropriate (2) Hypotension: Plan: Hypotensive during exam, BP 89/63 with some lightheadedness --> resolved In post op setting Resumed Toprol with hold parameters. Plan to resume losartan tomorrow (3) Hypertension: Plan: Resumed Toprol with hold parameters. Plan to resume losartan tomorrow (4) CAD (coronary artery disease): Plan: S/P Stent x 3 in 2018 No CP or SOB Continue aspirin, atorvastatin, metoprolol (5) Hyperlipidemia: Plan: Continue atorvastatin (6) Seizure: Plan: H/O Seizure disorder. Last seizure >25 years ago Has been tapered off Tegretol secondary to hyponatremia (7) GERD (gastroesophageal reflux disease): Plan: Continue PPI DVT Prophylaxis: SCDs per ortho Disposition per primary team Follows with Miranda Ritter PA-C in [place] for routine care Patient seen in collaboration with Dr. Chamberlain. Please see addendum. Thank you for this consultation. We will follow the patient with you during their hospital stay. You can reach a member of the [facility]ist Team 05/10 via [employer] Admission and Anticipated Discharge Date Admission Date: November 06, 2020 Supervising Physician Co-Signing Physician Notes Attending addendum: The patient is seen and examined the medical floor She has been feeling much better with minimal back pain and denies any other symptoms Did have some abdominal discomfort that relieved following bowel movement On examination No apparent distress at rest Hemodynamically stable Chestclear to auscultate bilaterally HeartS1-S2 Abdomenbenign Labs are noted Agree with assessment plan as outlined above by Loida Jaime PA-C Remains medically stable Dr Miguel Chamberlain Subjective Patient seen and examined in [facility] in bedside chair. Feeling well today after ambulating with PT. No fever, chills, headache, lightheadedness, visual changes, chest pain, SOB, nausea, vomiting, abdominal pain, dysuria. Had bowel movement x 2 this morning. Review of Systems Review of Systems: At least ten systems reviewed and negative except as noted in the HPI. Physical Exam Physical Exam: General Appearance: WD/WN, vitals as above, NAD, sitting up in bedside chair, pleasant, conversing easily Head: normocephalic, atraumatic Eyes: normal inspection, PERRL, conjunctivae normal, anicteric sclerae ENT: external ear and nose normal, oropharynx normal Neck: normal visual inspection, trachea midline, no thyromegaly Respiratory: normal respiratory effort, lungs clear to auscultation, no wheeze, rales, rhonchi. No accessory muscle use Cardiovascular: regular rate, rhythm, no murmur, normal peripheral pulses, no B LE edema. Vessels: no JVD Abdomen/GI: normal bowel sounds, soft, nontender, no hepatosplenomegaly Extremities/Musculoskeletal: Spinal surgical dressing c/d/i. NIKOLE drain visualized. No cyanosis or clubbing, extremities motor strength 5/5 Neurologic: PERRL, CN's II-XI intact bilaterally and moves all extremities Psychiatric: A+Ox3, euthymic affect Skin: no rashes, normal color, warm/dry Results & Data Results & Data ([facility]) Vital Signs (Past 12 Hours) Vital Signs Temp Pulse Resp BP Pulse Ox 11/08/20 07:29 36.9 C 72 16 124/83 98 11/07/20 21:58 37.5 C 83 16 130/82 100 Laboratory Results Short CBC 11/08/20 Range/Units 05:58 WBC 11.69 H (4.8-10.8) K/uL Hgb 9.5 L (12.0-16.0) g/dL Hct 28.2 L (37-47) % Plt Count 249 (130-400) K/uL BMP 11/08/20 05:58 Sodium 134 L Potassium 4.2 Chloride 103 Carbon Dioxide 27 BUN 10 Creatinine 0.56 L Glucose 106 H Calcium 8.4 L Diagnostic Findings Lumbar Spine X-Ray 11/06/20 12:55 FL lumbar spine 2-3V CLINICAL HISTORY: L4-S1 PSF, DECOMPRESSION COMPARISON STUDY: Lumbar spine radiographs April 29, 2016. FLUOROSCOPY TIME: 22 seconds. FLUOROSCOPIC IMAGES: 2 FINDINGS: Fluoroscopy was provided during L4-L5 and L5-S1 discectomies with interbody spacer placement. Posterior decompression is noted with bilateral pedicle screws at the L4, L5 and S1 levels. There are interconnecting rods. Hardware is intact. IMPRESSION: Fluoroscopy provided during L4-S1 posterior decompression, discectomy and bilateral pedicle screw fusion. ACT 112: Negative or not required by law. Electronically signed by: Chet Gonzalez M.D. 11/06/2020 4:15 PM
[2020-11-08] MEDS: ACETAMINOPHEN 500 MG TAB PO PRN (17:17)
[2020-11-08 18:18] LABS: Appearance Urine Clear (Clear); Bacteria Urine Automated Negative (Negative); Bilirubin Urine Negative (Negative); Blood Urine 2+ (Negative); Color Urine Yellow; Epithelial Cell Urine Auto >30 /lpf (0-5); Glucose Urine UA Trace (Negative); Ketones Urine Negative (Negative); Leukocyte Esterase Urine Trace (Negative); Nitrite Urine Negative (Negative); Protein Urine Trace (Negative); RBC Urine Automated >30 /hpf (0-4); Specific Gravity Urine 1.014 (1.000-1.030); Urobilinogen Urine Negative (Negative)
[2020-11-08] MEDS: METOPROLOL SUCC 50MG EXT REL TAB PO SCH (20:48)
[2020-11-08] MEDS: DOCUSATE SODIUM/SENNA 50/8.6MG TAB PO SCH (20:48)
[2020-11-08] MEDS: ATORVASTATIN 40 MG TAB PO SCH (20:49)
[2020-11-08] MEDS: traMADol HCL 50 MG TABLET PO PRN (23:17)
[2020-11-09 06:24] LABS: Hematocrit (blood only) 26.1 % (37-47); Hemoglobin 8.9 g/dL (12.0-16.0); Mean Corpuscular Hemoglobin 32.8 pg (25-34); Mean Corpuscular Hgb Conc 34.1 g/dL (32-36); Mean Corpuscular Volume 96.3 fL (80-100); Mean Platelet Volume 9.8 fL (7.4-10.4); Platelet Count 263 K/uL (130-400); RDW Coefficient of Variation 13.1 % (11.5-14.5); RDW Standard Deviation 45.5 fL (36.4-46.3); Red Blood Count 2.71 M/uL (4.2-5.4); White Blood Count 14.83 K/uL (4.8-10.8)
[2020-11-09 06:57] LABS: BUN Creatinine Ratio 24.4 (10-20); Calcium 8.5 mg/dl (8.5-10.1); Creatinine Clr Calc Pharmacy 75.5 ml/min; Est GFR (African American) 108.5 ml/min; Est GFR (Non-African American) 93.7 ml/min
[2020-11-09] MEDS: CHOLECALCIFEROL 1,000 UNITS 25 MCG TAB PO SCH (08:05)
[2020-11-09] MEDS: ASPIRIN 81 MG ECTAB PO SCH (08:05)
[2020-11-09] MEDS: PANTOprazole 40 MG TAB PO SCH (08:05)
[2020-11-09] MEDS: MULTIVITAMIN TAB PO SCH (08:05)
[2020-11-09] MEDS: dexAMETHasone 8 MG in SYRINGE 0 ML IV SCH (08:05)
[2020-11-09] MEDS: LOSARTAN POTASSIUM 50 MG TAB PO SCH (08:06)
--- NOTE | 2020-11-09 10:57 | Discharge Summary ---
Date of Service November 09, 2020 Admission HPI Per Admitting Provider This is a 70-year-old female that presents with progressive back and bilateral leg pain. She now notes significant weakness to lower extremities with any standing and walking. She is undergone extensive course of nonoperative care including epidural injections providing limited to no relief. Principal Diagnosis Lumbar spinal stenosis with neurogenic claudication Discharge Data Allergies Allergy/AdvReac Type Severity Reaction Status Date / Time propoxyphene [From Darvon] AdvReac Mild Upset Verified 11/06/20 12:50 stomach Consultations 11/06/20 17:45 Consult Hospitalist Routine Procedures Performed Operation Date: 11/06/20 14:15 Actual Procedures p L4-S1 Decompression/Fusion, Spinal Cord Monitoring(Not Applicable) - Andrei Ji DO Ordered Studies 11/06/20 12:55 FL lumbar spine 2-3V Routine Hospital Course (1) Neurogenic claudication due to lumbar spinal stenosis: Patient went lumbar decompression fusion [place] posting orthopedic for postop labor postop day #1 she was up and ambulating leg pain improved progress postop day #2 on postop day #3 3. Decreased probably pain well controlled excellent strength testing subsequent discharge home. Discharge orders in structions on the chart for further review. Total Time Total Time Spent Total Time Spent (In Minutes): 20 minutes Discharge Plan Discharge Items Patient Disposition: Home - Self-Care Reason For Visit: Spinal Stenosis, Lumbar Region with Neurogenic Cla Discharge Diagnosis: Lumbar spinal stenosis with neurogenic claudication Activity: As commented below Non-emergency contact: Primary Care Provider Call non-emergency contact if: you have any medication questions Follow-up/Referrals: Miranda Ritter PA-C [Primary Care Provider] - Diet: Regular Addtl Attending Provider Instructions: ACTIVITY RECOMMENDATIONS: SELF CARE INSTRUCTIONS AFTER THORACIC/LUMBAR FUSIONS 1. You may walk to your tolerance. It is good exercise for your legs and back. Expect some back and intermittent leg aches and pains. 2. You may perform "counter-top" level activities (make a sandwich, graciela with a project, etc.). 3. No bending or lifting of more than 10 pounds or back twisting of any nature (roll like a log when turning in bed). 4. You may ride in a car for 20-30 minutes at a time. No driving until after your first visit with your doctor. 5. Frequent changes of position and restricting sitting to 30 minutes at a time will help limit the amount of back spasms and stiffness you may experience. 6. You may discontinue the use of ambulatory aids (cane, crutches, etc.) once your strength and confidence allow. 7. You may juice standardizer the shower and let water strike your incision when you arrive home at least once daily. Do not take a tub bath, sit in a hot tub or go into a swimming pool until after your first recheck in the office. SPECIAL CARE INSTRUCTIONS: VERY IMPORTANT TO READ AND REVIEW A. Your surgical incision has been closed with a cosmetic suture under the skin that will dissolve in about 6 weeks. In 14 days, you can use a pair of clean scissors and cut the suture that is left outside of the skin at the ends of your incision. 1. The small skin tapes can be removed 7 days after surgery if they have not fallen off by that point. 2. You may keep the wound open to air as much as possible to promote healing after post-op day number 5 unless told otherwise by your doctor. 3. If you think the wound looks like it is becoming infected (redness or worsening drainage) and/or you are experiencing fever, chill or worsening back pain and muscle spasms, contact the office so that we may evaluate you as soon as possible. B. Complications are uncommon, but please contact us if you have any signs or symptoms of: 1. wound infection (fever higher than 102.5 degrees F, redness, separation of wound, drainage, or increasing pain from the incision) 2. blood clots in legs (pain, swelling, redness and warmth in legs) 3. urinary tract infection (fever higher than 102.5 degrees F, burning upon urination or increased frequency of urination) 4. nerve problems (inability to walk on your toes or heels, numbness, loss of bowel or bladder control) 5. any other symptoms that concern you C. Please call the office at if you have any concerns or questions about your operation or recovery. D. No smoking! Smoking drastically decreases the chance of a solid fusion. E. Do not take any anti-inflammatory medications (Indocin, Advil, Motrin, Aspirin, Naprosyn, etc.) as these may inhibit the chance of a solid fusion. Tylenol is okay to take for pain. MANAGING PAIN AFTER SPINAL SURGERY 1. Narcotic medication is intended for short-term use and will be provided for surgical pain. Surgical pain usually lasts for a period of 4-6 weeks. Narcotic medication includes Percocet, Vicodin, Darvocet, Tylenol #3 or Lortab. 2. Longer-term pain is more appropriately treated with non-narcotic medication such as Tylenol ES. 3. Muscle spasm is not appropriately treated with narcotics. Muscle relaxers such as Soma, Flexeril or Skelaxin can be used along with Tylenol ES. 4. Remember that we all live with some "aches and pains". This is not unusual or uncommon after an injury or as we get older. a. Back pain is expected and may include muscle spasms for 4 to 6 weeks after surgery. The pain should gradually improve. If the pain worsens for no apparent reason, please contact the office. b. Intermittent leg pain may also be experienced and should not be concerned about unless it worsens for no apparent reason. If so, please contact the office. 5. We will provide appropriate medication within the normal guidelines of their prescribed use. We will also be very cautious and aware of potential abuse and extended duration of patients' medication needs. a. Pain medications are for your comfort and to assist with sleep and rest so that the tissue can heal. They are not provided in order to return to normal activity and should not be used through the day. To do so or worsening pain at night can result from ongoing tissue damage and development of tolerance to the prescribed medicine. 6. Please allow 2-3 days to process refills. Prescriptions will not be mailed but must be picked up at the office. FOLLOW UP VISIT: Keep your scheduled follow-up appointment. Any questions, please call the office at . Pending Studies at Discharge: No Stand-Alone Forms: My Smart[employer], Smoking Cessation Medications and DC Order Prescriptions: New oxycodone 5 mg tablet 5 mg PO Q6H PRN (Reason: pain, severe) Qty: 30 RF: 0 tramadol 50 mg tablet 50 mg PO Q6H PRN (Reason: pain, moderate) Qty: 30 RF: 0 Continued multivitamin Tablet 1 tab PO QAM RF: 0 losartan 50 mg Tablet 50 mg PO QAM RF: 0 atorvastatin 40 mg Tablet 40 mg PO PM RF: 0 metoprolol succinate 100 mg Tablet Extended Release 24 Hr 100 mg PO QPM RF: 0 aspirin 81 mg Tablet 81 mg PO QAM RF: 0 cholecalciferol (vitamin D3) [Vitamin D3] 25 mcg (1,000 unit) Tablet 25 mcg PO QAM RF: 0 omeprazole 20 mg Tablet,Delayed Release (Dr/Ec) 20 mg PO QAM RF: 0 Discharge Orders: Discharge Order (Routine); Ordered 11/09/20 Ordered By: Andrei Ji Admission Data Admit Date/Time: 11/06/20 16:12 Attending Provider: Andrei Ji Admit Provider: Andrei Ji Primary Care Provider: Miranda Ritter Other Providers: Raiza Segura ; Fernando Chamberlain
--- NOTE | 2020-11-09 12:35 | Hospitalist Progress Note ---
Date of Service November 09, 2020 Assessment & Plan (1) Status post lumbar surgery: Plan: Post op day# 3 S/P L4-S1 decompression and fusion by Dr Ji - hgb is lower than than yesterday: 11.5 > 9.5 > 8.9 ----no sign of acute bleeding ---- likely 2/2 blood loss during surgery ---- pt is completely asymptomatic ---- advised the pt to follow up with her PCP next week for CBC Per ortho for pain control, wound care, anticoagulation and activities Continue incentive spirometry, PT/OT when appropriate (2) Urinary retention: Plan: - it looks like pt has hx of urinary incontinence with possible urinary retention - today urinating well w/o cathether - no symptoms: UA + for blood and trace leuk ----- pt denied any dysuria, urinary urgency/frequency: no need for treatment - recommended Outpt urology f/u for incontinence and retention (3) Hypotension: Plan: - resolved - can resume home BP meds (4) Hypertension: Plan: - resumed home HTN meds (5) CAD (coronary artery disease): Plan: S/P Stent x 3 in 2018 No CP or SOB Continue aspirin, atorvastatin, metoprolol (6) Hyperlipidemia: Plan: Continue atorvastatin (7) Seizure: Plan: H/O Seizure disorder. Last seizure >25 years ago Has been tapered off Tegretol secondary to hyponatremia (8) GERD (gastroesophageal reflux disease): Plan: Continue PPI DVT Prophylaxis: SCDs per ortho Disposition per primary team: pt is getting discharged today Follows with Miranda Ritter PA-C in [place] for routine care Thank you for this consultation. You can reach a member of the [facility]10 via [facility] Admission and Anticipated Discharge Date Admission Date: November 06, 2020 Subjective Pt is a 70 y/o F with hx of CAD s/p stent, iron def anemia, HTN, GERD, DJD, HLD, possible stress urinary incontinence, chronic back pain, lumbar spinal stenosis admitted for L4-S1 decompression and fusion surgery Overnight pt needed to get straight cath for urinary retention Today at bedside: pt denied any abd pain, dysuria, hematuria, N/V. eating well and LBM was yesterday - denied any bloody or black stool. - denied any CP, SOB or dizziness - was getting IV fluids yesterday - able to urinate today Review of Systems Review of Systems: At least 10 Review of systems were reviewed and all negative except as indicated in HPI Physical Exam Physical Exam: General:. NAD, well developed HEENT:. Normal Conjunctiva, EOMI Abdominal:. ND, Soft, NT MSK:. No leg edema Psych:. AAOx3, normal affect Results & Data Results & Data ([facility]) Vital Signs (Past 12 Hours) Vital Signs Temp Pulse Pulse Pulse Resp BP BP 11/09/20 11:58 36.9 C 75 86 70 16 144/62 H 129/81 11/09/20 11:16 36.9 C 75 92 H 70 16 144/62 H 129/81 11/09/20 06:16 36.9 C 70 16 129/81 Pulse Ox 11/09/20 11:58 100 11/09/20 11:16 100 11/09/20 06:16 100 Laboratory Results Short CBC 11/09/20 Range/Units 05:29 WBC 14.83 H (4.8-10.8) K/uL Hgb 8.9 L (12.0-16.0) g/dL Hct 26.1 L (37-47) % Plt Count 263 (130-400) K/uL BMP 11/09/20 05:29 Sodium 135 L Potassium 4.0 Chloride 105 Carbon Dioxide 30 BUN 15 Creatinine 0.60 Glucose 108 H Calcium 8.5 Urine 11/08/20 Range/Units 17:28 Urine Color Yellow Urine Appearance Clear (Clear) Urine pH 6.0 (4.5-7.5) Ur Specific [place] 1.014 (1.000-1.030) Urine Protein Trace H (Negative) Urine Glucose (UA) Trace H (Negative)
[2020-11-09] MEDS: oxyCODONE HCL IR 5 MG TAB (IMMEDIATE RELEASE) PO PRN (14:14)
== END 2020-11-09 15:30 | disposition home or self-care (01) | DRG 455 ==
LOC: ASU 12:30 → 3E 16:12
DX: I95.9 Hypotension, unspecified; Z79.82 Long term (current) use of aspirin; I25.10 Atherosclerotic heart disease of native coronary artery without angina pectoris; I10 Essential (primary) hypertension; K21.9 Gastro-esophageal reflux disease without esophagitis; E78.5 Hyperlipidemia, unspecified; M48.062 Spinal stenosis, lumbar region with neurogenic claudication